=== PATIENT | female | born 1975 | race Caucasian/White ===

== ENCOUNTER 2019-03-16 18:27 | Emergency (ER) ==
[2019-03-16 18:31] VITALS: BP 117/78; TEMP 98.5; BMI 30.9
--- NOTE | 2019-03-16 18:36 | ED.PDOC ---
General ED Provider: Dr. LOPEZ LAM-ER Chief Complaint: Tooth Problem Stated Complaint: my tooth is swollen and paInful Time Seen by Physician: 18:34 Mode of Arrival: Walk-In Information Source: Patient Exam Limitations: No limitations Nursing and Triage Documentation Reviewed and Agree: Yes Does patient meet sepsis criteria?: No System Inflammatory Response Syndrome: Not Applicable Sepsis Protocol: For patient's 13 years and over: Temp is 96.8 and below OR 101 and greater Pulse >90 BPM Resp >20/minute Acutely Altered Mental Status Are patient's symptoms suggestive of a new infection, such as: -Pneumonia -Skin, Soft Tissue -Endocarditis -UTI -Bone, Joint Infection -Implantable Device -Acute Abdominal Infection -Wound Infection -Meningitis -Blood Stream Catheter Infection -Unknown EENT Complaint Exam - Dental/Oral Complaint/Exam Mechanism of Injury: No known trauma Onset/Duration: 3 days Symptoms Are: Still present Timing: Constant Initial Severity: Mild Current Severity: Moderate Location: right lower premolar Character: Reports: Dull, Aching, Throbbing Aggravating: Reports: Heat, Cold, Chewing Associated Signs and Symptoms: Reports: Swelling, Discharge Tooth Findings: Present: Percussion tenderness, Gross decay, Gross caries Cervical Lymphadenopathy Present: No Facial Swelling Present: No Bleeding Present: No Oropharynx Findings: Absent: Clots, Active bleeding Septal Hematoma: No Foreign Body Present: No Dysphagia Present: No Drooling Present: No Asymmetrical Tonsillar Swelling Present: No Uvula Midline: Yes Claire-tonsillar Fluctuence: No Trismus Present: No Palatal Petechiae Present: No Scarlatinaform Rash Present: No Differential Diagnoses: Dental Abcess Review of Systems - Review Of Systems Constitutional: Reports: No symptoms Eyes: Reports: No symptoms Ears, Nose, Mouth, Throat: Reports: Mouth pain, Mouth swelling Respiratory: Reports: No symptoms Cardiac: Reports: No symptoms GI: Reports: No symptoms : Reports: No symptoms Musculoskeletal: Reports: No symptoms Skin: Reports: No symptoms Neurological: Reports: No symptoms Endocrine: Reports: No symptoms Hematologic/Lymphatic: Reports: No symptoms All Other Systems: Reviewed and Negative Past Medical History - Past Medical History Previously Healthy: Yes Endocrine: Reports: None Cardiovascular: Reports: None Respiratory: Reports: None Hematological: Reports: None Gastrointestinal: Reports: None Genitourinary: Reports: None Neuro/Psych: Reports: None Musculoskeletal: Reports: None Cancer: Reports: None Last Menstrual Period: n/a - Surgical History General Surgical History: Reports: Unknown - Family History Family History: Reports: Unknown - Social History Smoking Status: Current every day smoker Hx Substance Use: No Alcohol Screening: None Physical Exam - Physical Exam Appearance: Well-appearing, No pain distress, Well-nourished Eyes: MINO, EOMI, Conjunctiva clear ENT: Ears normal, Nose normal Neck: Supple Respiratory: Airway patent Cardiovascular: RRR GI/: Soft, Nontender, No masses, Bowel sounds normal, No Organomegaly Musculoskeletal: Normal strength, ROM intact, No edema, No calf tenderness Skin: Warm, Dry, Normal color Neurological: Sensation intact, Motor intact, Reflexes intact, Cranial nerves intact, Alert, Oriented Psychiatric: Affect appropriate, Mood appropriate Critical Care Note - Critical Care Note Total Time (mins): 0 Course - Course Vital Signs: Temp Pulse Resp BP Pulse Ox 03/16/19 18:28 98.5 F 74 20 117/78 97 Departure - Departure Time of Disposition: 18:36 Disposition: HOME SELF-CARE Discharge Problem: Dental abscess Instructions: Dental Abscess (ED) Condition: Good Pt referred to PMD for follow-up: Yes IPMP verified?: No Additional Instructions: clindamycin 300mg qid x 7 days---norco 7.5mg q 4hrs prn pain #12---f/u dentist leila Allergies/Adverse Reactions: Allergies No Known Allergies Allergy (Unverified 03/16/19 18:31) Home Medications: Ambulatory Orders 1 [No Reported Medications] 03/16/19 Disposition Discussed With: Patient
== END 2019-03-16 18:45 | disposition home or self-care (01) ==
LOC: ED 18:27
DX: K08.89 Other specified disorders of teeth and supporting structures (principal); K04.7 Periapical abscess without sinus; K02.7 Dental root caries; F17.210 Nicotine dependence, cigarettes, uncomplicated
CPT/HCPCS: 99282

== ENCOUNTER 2019-04-28 13:15 | Outpatient (CLI) ==
--- NOTE | 2019-04-28 16:00 | MRI ---
EXAM: MRI left shoulder without contrast. HISTORY: Left shoulder pain. Limited range of motion. No left shoulder surgery reported.. TECHNIQUE: Using a local coil on a high field strength magnet multiplanar multisequence MRI was perf ormed of the left shoulder without intravenous or intra-articular gadolinium contrast.. FINDINGS: I do not have prior radiographs of the left shoulder available for comparison at the time of this dictation. A Type I acromion. Coracoacromial ligament/arch intact with some thickening. Left AC joint intact. Deltoid musculature normal signal intensity. No significant free fluid subacromial/subdeltoid bursa . Muscle bulk of the rotator cuff shows no acute muscle strain or overt atrophy. Supraspinatus tendino sis . Bursal sided fraying. Partial thickness rim rent tearing supraspinatus. No full-thickness ro tator cuff tear identified. Posterior to the inferior intact infraspinatus and teres minor tendon fi bers. Anterior intact subscapularis tendon fibers. The long head of the biceps tendon shows intact fibers located in expected position within the bicipital groove and within normal limit in signal int ensity and morphology. The left humeral head is of normal morphology and seated. No left glenohumeral joint centered subcho ndral bone marrow edema or bone erosions. Trace left glenohumeral joint effusion. Left glenoid labr um grossly intact on this non-arthrographic examination.. IMPRESSION: Supraspinatus tendinosis. Bursal sided fraying. Partial thickness rim rent tearing. N o full-thickness rotator cuff tear identified. Trace left glenohumeral joint effusion. Recommendation is obtainment and correlation with plain film radiographs of the left shoulder as none are available for comparison at the time of this dictation.
== END 2019-04-28 13:16 | disposition home or self-care (01) ==
LOC: RAD 13:15
PROVIDERS: ATTEND Physician Assistant
DX: M25.512 Pain in left shoulder (principal)

== ENCOUNTER 2019-05-03 09:20 | Outpatient (CLI) ==
--- NOTE | 2019-05-05 10:20 | MAMMO ---
EXAM: Bilateral digital screening mammogram (2-D and 3-D) History: Screening Comparison: None available. Findings: MLO and CC views of bilateral breasts demonstrate scattered fibroglandular breast parenchy ma. CAD was reviewed by the radiologist. Tomosynthesis was performed. 0.8 cm mass within the centr al right breast posterior depth. No suspicious microcalcifications. No architectural distortion. Impression: Indeterminate mass within the right breast. Recommend further evaluation with right charles ast ultrasound. BI-RADS 0, incomplete further evaluation is needed
== END 2019-05-03 09:21 | disposition home or self-care (01) ==
LOC: RAD 09:20
PROVIDERS: ATTEND Physician Assistant
DX: Z12.31 Encounter for screening mammogram for malignant neoplasm of breast (principal)

== ENCOUNTER 2019-05-10 08:58 | Outpatient (CLI) ==
--- NOTE | 2019-05-10 10:11 | US ---
EXAM: Right breast ultrasound. History: Abnormal right mammogram, right breast mass. Comparison: Bilateral mammogram 05/03/2019 Technique: Multiple sonographic images through the right breast were obtained. Color duplex Doppler was used to interrogate vascular flow. Findings: At 12 o'clock 7 cm from nipple there is a 0.7 cm mixed echogenic area that may correlate w ith mammography. No other abnormalities are seen. Impression: 0.7 cm mixed echogenic area at 12 o'clock probably represents a complicated cyst or smal l fibroadenoma and is probably benign. Recommend 6-month follow-up right breast ultrasound and right breast mammogram to document stability. BI-RADS 3, probably benign
== END 2019-05-10 08:59 | disposition home or self-care (01) ==
LOC: RAD 08:58
PROVIDERS: ATTEND Physician Assistant
DX: R92.8 Other abnormal and inconclusive findings on diagnostic imaging of breast (principal)

== ENCOUNTER 2019-06-03 15:15 | Emergency (ER) ==
[2019-06-03 15:17] VITALS: BP 123/72; TEMP 97.8; BMI 31.2
--- NOTE | 2019-06-03 15:25 | ED.PDOC ---
General ED Provider: Dr. LOPEZ BATRES Chief Complaint: Bite Stated Complaint: Spider bite. Lt lower lateral chest wall. States she saw a Brown Recluse Spider that she believed was responsible for her symptoms. Diffuse reddened =maculopapular rash over chest wall, posterior thoracic and lumbar spin region. Has developed hives and diarrhera at 1300 hrs. Denied Dyspnea Time Seen by Physician: 15:20 Mode of Arrival: Walk-In Information Source: Patient Exam Limitations: No limitations Primary Care Provider: ERICA DOW Nursing and Triage Documentation Reviewed and Agree: Yes Does patient meet sepsis criteria?: No System Inflammatory Response Syndrome: Not Applicable Sepsis Protocol: For patient's 13 years and over: Temp is 96.8 and below OR 101 and greater Pulse >90 BPM Resp >20/minute Acutely Altered Mental Status Are patient's symptoms suggestive of a new infection, such as: -Pneumonia -Skin, Soft Tissue -Endocarditis -UTI -Bone, Joint Infection -Implantable Device -Acute Abdominal Infection -Wound Infection -Meningitis -Blood Stream Catheter Infection -Unknown Skin Complaint Exam - Skin Rash/Itching Complaint/Exam Symptoms Are: Still present Initial Severity: Moderate Current Severity: Moderate Location: Torso Potential Exposures: Reports: Insect bite Aggravating: Reports: Clothing Alleviating: Reports: None, Cool compresses Associated Signs and Symptoms: Denies: Difficulty breathing, Fever, Chills Skin Findings: Present: Urticaria, Purpura, Lesions Differential Diagnoses: Allergic Reaction, Other (Spider bite) Review of Systems - Review Of Systems Constitutional: Reports: No symptoms Eyes: Reports: No symptoms Ears, Nose, Mouth, Throat: Reports: No symptoms Respiratory: Reports: No symptoms Cardiac: Reports: No symptoms GI: Reports: No symptoms : Reports: No symptoms Musculoskeletal: Reports: No symptoms Skin: Reports: No symptoms Neurological: Reports: No symptoms Endocrine: Reports: No symptoms Hematologic/Lymphatic: Reports: No symptoms All Other Systems: Reviewed and Negative Past Medical History - Past Medical History Previously Healthy: Yes Endocrine: Reports: None Cardiovascular: Reports: None Respiratory: Reports: None Hematological: Reports: None Gastrointestinal: Reports: None Genitourinary: Reports: None Neuro/Psych: Reports: None Musculoskeletal: Reports: None Cancer: Reports: None Last Menstrual Period: HYSTERECTOMY - Surgical History General Surgical History: Reports: Unknown - Family History Family History: Reports: Unknown - Social History Smoking Status: Current every day smoker Hx Substance Use: No Alcohol Screening: None - Immunizations Tetanus Shot up to Date: No Physical Exam - Physical Exam Appearance: Well-appearing, No pain distress, Well-nourished Eyes: MINO, EOMI, Conjunctiva clear ENT: Ears normal, Nose normal, Oropharynx normal Respiratory: Airway patent, Breath sounds clear, Breath sounds equal, Respirations nonlabored Cardiovascular: RRR, Pulses normal, No rub, No murmur GI/: Soft, Nontender, No masses, Bowel sounds normal, No Organomegaly Musculoskeletal: Normal strength, ROM intact, No edema, No calf tenderness Skin: Warm (Morbilliform type of rash about trunk), Dry, Normal color Neurological: Sensation intact, Motor intact, Reflexes intact, Cranial nerves intact, Alert, Oriented Psychiatric: Affect appropriate, Mood appropriate Critical Care Note - Critical Care Note Total Time (mins): 30 Course - Course Hematology/Chemistry: 06/03/19 15:41 06/03/19 15:41 Orders, Labs, Meds: Lab Review 06/03/19 06/03/19 06/03/19 15:41 15:41 15:41 WBC 12.33 H RBC 4.46 Hgb 14.1 Hct 41.3 MCV 92.6 MCH 31.6 H MCHC 34.1 RDW Coeff of Katrina 13.2 Plt Count 234 Immature Gran % (Auto) 0.3 Neut % (Auto) 73.4 Lymph % (Auto) 18.9 Barnes % (Auto) 5.4 Eos % (Auto) 1.6 Baso % (Auto) 0.4 Immature Gran # (Auto) 0.0 Neut # (Auto) 9.1 H Lymph # (Auto) 2.3 Barnes # (Auto) 0.7 Eos # (Auto) 0.2 Baso # (Auto) 0.1 ESR 3 PT 10.7 INR 1.07 APTT 28.7 Sodium 140.6 Potassium 3.67 Chloride 108.3 H Carbon Dioxide 22.1 Anion Gap 13.87 BUN 17.4 H Creatinine 0.63 Estimated GFR (MDRD) 102.00 BUN/Creatinine Ratio 27.61 Glucose 113.2 H Lactic Acid Calcium 9.07 Total Bilirubin < 0.10 L AST 16.5 ALT 13.6 Alkaline Phosphatase 51.9 Total Creatine Kinase 69.4 Total Protein 6.88 Albumin 4.28 Globulin 2.60 Albumin/Globulin Ratio 1.64 07/13/19 15:41 WBC RBC Hgb Hct MCV MCH MCHC RDW Coeff of Katrina Plt Count Immature Gran % (Auto) Neut % (Auto) Lymph % (Auto) Barnes % (Auto) Eos % (Auto) Baso % (Auto) Immature Gran # (Auto) Neut # (Auto) Lymph # (Auto) Barnes # (Auto) Eos # (Auto) Baso # (Auto) ESR PT INR APTT Sodium Potassium Chloride Carbon Dioxide Anion Gap BUN Creatinine Estimated GFR (MDRD) BUN/Creatinine Ratio Glucose Lactic Acid 1.05 Calcium Total Bilirubin AST ALT Alkaline Phosphatase Total Creatine Kinase Total Protein Albumin Globulin Albumin/Globulin Ratio Orders Category Date Time Status IV [ED IV/MEDIPORT/POWERPORT] .ONCE EMERGENCY 06/03/19 15:28 Active CBC W/ AUTO DIFF Stat LAB 06/03/19 15:41 Completed CMP [COMPREHENSIVE METABOLIC PANEL] Stat LAB 06/03/19 15:41 Completed CREATINE KINASE Stat LAB 06/03/19 15:41 Completed ESR Stat LAB 06/03/19 15:41 Completed LACTIC ACID Stat LAB 06/03/19 15:41 Completed PT WITH INR Stat LAB 06/03/19 15:41 Completed PTT [PARTIAL THROMBOPLASTIN TIME] Stat LAB 06/03/19 15:41 Completed 0.9 % Sodium Chloride [Saline Flush] MEDS 06/03/19 15:32 Discontinued 1 syr IVF PRN PRN Diphenhydramine HCl [Benadryl] MEDS 06/03/19 15:32 Discontinued 25 mg PO ONCE STA Famotidine Inj [Pepcid] MEDS 06/03/19 15:30 Discontinued 20 mg IVP ONCE STA Famotidine [Pepcid] MEDS 06/03/19 15:58 Discontinued 20 mg PO ONCE STA Methylprednisolone Sod Succ/Pf [Solu-Medrol 125 mg] MEDS 06/03/19 15:30 Discontinued 125 mg IM ONCE STA Methylprednisolone Sod Succ/Pf [Solu-Medrol 125 mg] MEDS 06/03/19 16:01 Discontinued 125 mg IM ONCE STA Sodium Chloride 0.9% [Sodium Chloride] 1,000 ml MEDS 06/03/19 15:30 Discontinued IV BOLUS Medications Discontinued Medications Generic Name Dose Route Start Last Admin Trade Name Freq PRN Reason Stop Dose Admin Diphenhydramine HCl 25 mg 06/03/19 15:32 06/03/19 16:12 Benadryl PO 06/03/19 15:33 25 mg ONCE STA Administration Famotidine 20 mg 06/03/19 15:30 06/03/19 16:16 Pepcid IVP 06/03/19 15:31 Not Given ONCE STA Famotidine 20 mg 06/03/19 15:58 06/03/19 16:07 Pepcid PO 06/03/19 15:59 20 mg ONCE STA Administration Sodium Chloride 1,000 mls @ 1,000 mls/hr 06/03/19 15:30 06/03/19 16:16 Sodium Chloride IV 06/03/19 16:29 Not Given BOLUS STA Methylprednisolone Sodium Succinate 125 mg 06/03/19 15:30 06/03/19 16:16 Solu-Medrol 125 Mg IM 06/03/19 15:31 Not Given ONCE STA Methylprednisolone Sodium Succinate 125 mg 06/03/19 16:01 06/03/19 16:07 Solu-Medrol 125 Mg IM 06/03/19 16:02 125 mg ONCE STA Administration Sodium Chloride 1 syr 06/03/19 15:32 Saline Flush IVF PRN PRN To flush IV Vital Signs: Temp Pulse Resp BP Pulse Ox 06/03/19 15:15 97.8 F 70 18 123/72 96 Departure - Departure Time of Disposition: 16:40 Disposition: HOME SELF-CARE Discharge Problem: Brown recluse spider bite, Rash and nonspecific skin eruption Instructions: Brown Recluse Spider Bite (ED) Condition: Fair Pt referred to PMD for follow-up: Yes IPMP verified?: No Additional Instructions: Monitor site of envenomation for worsening skin changes Loxoscelism is the term for the medical manifestations of bites by recluse spiders. The initial bite of a [place]oxosc[place] spider is typically painless, although some patients describe sharp pain or burning. The progression of necrosis from a recluse spider bite typically occurs over several days.These generally heal by secondary intent over several weeks, without scarring . Treatment consists of cleansing of the bite site, analgesia for mild to moderate pain, and tetanus prophylaxis Systemic toxicity may appear over several days following a bite and include malaise, nausea and vomiting, fever, and myalgias. If you develop systemic findings this warrants additon ancillary studies and evaluation Systemic toxicity includes conditions such as hemolytic anemia, rhabdomyolysis, or disseminated intravascular coagulopathy. If your symptoms should progress please contact ER for additional evaluation and tx Take meds as directed including : Zyrtec 10 mg 1 daily; Benadryl 25 mg q 6-8 hrs and Prednisone Prescriptions: Cephalexin [Keflex] 500 mg PO BID #14 capsule Prednisone 10 mg PO DAILY #12 tablet Allergies/Adverse Reactions: Allergies No Known Allergies Allergy (Unverified 06/03/19 15:17) Home Medications: Ambulatory Orders Cephalexin [Keflex] 500 mg PO BID #14 capsule 06/03/19 Meloxicam [Mobic] 15 mg PO DAILY 06/03/19 Prednisone 10 mg PO DAILY #12 tablet 06/03/19 Varenicline Tartrate [Chantix] 1 mg PO BID 06/03/19 Disposition Discussed With: Patient
[2019-06-03] MEDS ORDERED: SOLU-MEDROL 125 MG IM STA ×2 (15:30→16:01)
[2019-06-03] MEDS ORDERED: PEPCID IVP STA (15:30)
[2019-06-03] MEDS ORDERED: SODIUM CHLORIDE 1,000 ML IV STA (15:30)
[2019-06-03] MEDS ORDERED: BENADRYL PO STA (15:32)
[2019-06-03] MEDS ORDERED: PEPCID PO STA (15:58)
== END 2019-06-03 16:57 | disposition home or self-care (01) ==
LOC: ED 15:15
DX: T63.331A Toxic effect of venom of brown recluse spider, accidental (unintentional), initial encounter (principal); R21 Rash and other nonspecific skin eruption; R19.7 Diarrhea, unspecified; F17.210 Nicotine dependence, cigarettes, uncomplicated
CPT/HCPCS: 36415; 80053; 82550; 83605; 85025; 85610; 85651; 85730; 96372; 99283